=== PATIENT | male | born 1980 | race African-American/Black ===

== ENCOUNTER 2024-04-16 08:03 | Outpatient (CLI) | payer BC, SELFPAY | END 2024-04-16 08:04 | disposition home or self-care (01) | PROVIDERS: Visit Provider Family Medicine | DX: Z00.00 Encounter for general adult medical examination without abnormal findings (principal); F41.9 Anxiety disorder, unspecified; Z11.59 Encounter for screening for other viral diseases; Z76.89 Persons encountering health services in other specified circumstances | CPT/HCPCS: 80053; 80061; 86803 ==

== ENCOUNTER 2024-04-30 20:39 | Emergency (ER) | payer BC, SELFPAY ==
[2024-04-30 20:47] VITALS: BP 133/83; PULSE 76; RESP 16; TEMP 36.1; O2SAT 99; BMI 26.5
--- OUTSIDE RECORDS SUMMARY | 2024-04-30 21:45 | XMS_ITS | Referral Summary ---
Author Organization [place] Address [address] [place] [address] Care Team Providers Care Line Palletizer Name Role Phone Unavailable Primary Care Provider Unavailabl e Allergies Active Allergy Reactions Criticality Noted Date Comments Benadryl Allergy 01/28/2012 Heart murmur Medications Medication Sig Dispensed Refills Start Date End Date Status ibuprofen (ADVIL,MOTRIN) 200 MG tablet Take 200 mg by mouth every 4 hours as needed for mild pain Active Active Problems Problem Noted Date Diagnosed Date Shift work sleep disorder 03/16/2013 Hyperlipidemia LDL goal <160 12/03/2012 Anxiety Heart palpitations Immunizations Name Administration Dates Next Due TDAP (Adacel,Boostrix) 04/02/2014 Tetanus 01/28/2012 Social History Tobacco Use Types Packs/Day Years Used Date Smoking Tobacco: Some Days Cigarettes Smokeless Tobacco: Never Tobacco Cessation:Ready to Q uit: Yes; Counseling Given: No Comments:1 pack every 2 weeks Alcohol Use Standard Drinks/Week Comments No 0 (1 standard drink = 0.6 oz pur e alcohol) not frequent. Adolescent Education Answer Date Record ed Getting School Help Needed Not on file 06/14 Sex and Gender Information Value Date Recorded Sex Assigned at Not on file Gender Identity Not on file Sexual Orientation Not on file Last Filed Vital Signs Vital Sign Reading Time Taken Comments Blood Pressure 118/80 10/02/2021 11:00 PM NEONATAL SPECIALIST Pulse 73 10/02/2021 11:00 PM NEONATAL SPECIALIST Temperature 37.3 ??C (99.2 ??F) 10/02/2021 7:26 PM CS T Respiratory Rate 16 10/02/2021 11:00 PM NEONATAL SPECIALIST Oxygen Saturation 99% 10/02/2021 11:00 PM NEONATAL SPECIALIST Inhaled Oxygen Concentration - - Weight 90.7 kg (200 lb) 10/02/2021 7:26 PM NEONATAL SPECIALIST Height 185.4 cm (6' 1) 10/02/2021 7:26 PM NEONATAL SPECIALIST Body Mass Index 26.39 10/02/2021 7:26 PM NEONATAL SPECIALIST Plan of Treatment Not on file Procedures Procedure Name Priority Date/Time Associated Diagnosis Comments BASIC METABOLIC PANEL STAT 10/02/2021 7:34 PM NEONATAL SPECIALIST LIPID PROFILE Routine 03/16/2013 9:45 AM CDT Hyperlipidemia LDL goal <160 from Last 3 Months or Most Recently Relevant to Health Maintenance Results * (ABNORMAL) Basic metabolic panel (BMP) (10/02/2021 7:34 PM NEONATAL SPECIALIST) Sodium 135 133 - 144 mmol/L 10/02/2021 7:58 PM [facility] Potassium 3.9 3.4 - 5.3 mmol/L 10/02/2021 7:58 PM [facility] Chloride 102 94 - 109 mmol/L 10/02/2021 7:58 PM [facility] Carbon Dioxide (CO2) 27 20 - 32 mmol/L 10/02/2021 7:58 PM [facility] Anion Gap 6 3 - 14 mmol/L 10/02/2021 7:58 PM [facility] Urea Nitrogen 14 7 - 30 mg/dL 10/02/2021 7:58 PM [facility] Creatinine 0.86 0.66 - 1.25 mg/dL 10/02/2021 7:58 PM [facility] Calcium 8.8 8.5 - 10.1 mg/dL 10/02/2021 7:58 PM [facility] Glucose 113(H) 70 - 99 mg/dL 10/02/2021 7:58 PM [facility] GFR Estimate >90 >60 mL/min/1.7 3m2 10/02/2021 7:58 PM [facility] Comment:Effective August 242020 eGFRcr in adults is calculated using the 2020 CKD-EPI creatinine equation which includes age and gender (Cosmo ward al., NEJM, DOI: 10.1056/WASQoj9922147) Blood STRUCTURE OF RIGHT UPPER LIMB / Unknown Venipuncture / Unknown 10/02/2021 7:34 PM NEONATAL SPECIALIST 10/02/2021 7:39 PM NEONATAL SPECIALIST Denzel Andrew MD LAB - BLOOD [facility] [address] Lab (1st floor, no room number) [place] [address], [facility] [phone] * Lipid Profile (03/16/2013 9:45 AM CDT) Cholesterol 112 0 - 200 mg/dL [facility] Comment: LDL Cholesterol is the primary guide to therapy. The NCEP recommends further evaluation of: patients with cholesterol greater than 200 mg/dL if additional risk factors are present, cholesterol greater than 240 mg/dL, triglycerides greater than 150 mg/dL, or HDL less than 40 mg/dL. Triglycerides 107 0 - 150 mg/dL [facility] Comment:Fasting specimen HDL Cholesterol 44 40 - 110 mg/dL [facility] LDL Cholesterol Calculated 46 0 - 129 mg/dL [facility] Comment: LDL Cholesterol is the primary guide to therapy: LDL-cholesterol goal in high risk patients is <100 mg/dL and in very high risk patients is <70 mg/dL. VLDL-Cholesterol 21 0 - 30 mg/dL [facility] Cholesterol/HDL Ratio 2.5 0.0 - 5.0 [facility] Blood specimen (specimen) 03/16/2013 9:45 AM CDT 03/16/2013 9:50 AM CDT Blayne Nguyen MD LAB - BLOOD ORDERABL ES [facility] [address] [place] [address] from Last 3 Months or Most Recently Relevant to Health Maintenance Michael Whittington Personal/Family Self 1980 [phone] (Home) [address] [place] [address] Michael Whittington Worker's Compensation Self 1980 [phone] (Home) NONE (Work) [address] [place] [address] Michael Whittington Worker's Compensation Self 1980 [phone] (Home) NONE (Work) [address] [place] [address]
--- OUTSIDE RECORDS SUMMARY | 2024-04-30 21:45 | XMS_ITS | Encounter Summary ---
Author Organization [place] Address [address] [place] [address] Care Team Providers Care Medical Record Clerk Name Role Phone Emily [facility] July Primary Care Provide r Unavailable Encounter Details Date Type Department Care Team (Late st Contact Info) Description 09/12/2021 Documentation Only INTERFACED REPORT Unknown, Provider Social History Tobacco Use Types Packs/Day Years Used Date Smoking Tobacco: Some Days Cigarettes Smokeless Tobacco: Never Comments:1 pack every 2 week s Alcohol Use Standard Drinks/Week Comments No 0 (1 standard drink = 0.6 oz pur e alcohol) not frequent. Sex and Gender Information Value Date Recorded Sex Assigned at Not on file Gender Identity Not on file Sexual Orientation Not on file COVID-19 Exposure Response Date Recorded In the last month, have you been in contact with someone who was confirmed or suspected to have Coronavirus / COVID-19? No / Unsure 09/11/2021 6:00 PM REMEDIAL TEACHER documented as of this encounter Plan of Treatment Not on file documented as of this encounter Visit Diagnoses Not on filedocumented in this encounter Care Teams Medical Record Clerk Relationship Specialty Start Date End Date [facility] July PCP - General 09/11/21 documented as of this encounter
--- OUTSIDE RECORDS SUMMARY | 2024-04-30 21:45 | XMS_ITS | Clinical Summary ---
Author Organization [facility] [place] Address [address] [place] [address] Care Team Providers Care Field Reimbursement Manager Name Role Phone Unavailable Primary Care Provider [...] Next Due TDAP (Adacel,Boostrix) 04/02/2014 Tetanus 01/28/2012 Family History Medical History Relation Comments Arthritis Brother RA Osteoporosis Mother Allergies Other Relation Status Comments Brother Alive Mother Alive Other Social History Tobacco Use Types Packs/Day Years [...] Comments Blood Pressure 118/80 10/02/2021 11:00 PM RIPRAP WORKER Pulse 73 10/02/2021 11:00 PM RIPRAP WORKER Temperature 37.3 ??C (99.2 ??F) 10/02/2021 7:26 PM CS T Respiratory Rate 16 10/02/2021 11:00 PM RIPRAP WORKER Oxygen Saturation 99% 10/02/2021 11:00 PM RIPRAP WORKER Inhaled Oxygen Concentration - - Weight 90.7 kg (200 lb) 10/02/2021 7:26 PM RIPRAP WORKER Height 185.4 cm (6' 1) 10/02/2021 7:26 PM RIPRAP WORKER Body Mass Index 26.39 10/02/2021 7:26 PM RIPRAP WORKER Plan of Treatment Health Maintenance Due Date Last Done Comments ADVANCE CARE PLANNING 1980 ANNUAL REVIEW OF HM ORDERS 1980 Pneumococcal Vaccine: Pediatrics (0 to 5 Years) and At-Risk Patients (6 to 64 Years) (1 of 2 - PCV) 1988 HIV SCREENING 1997 HEPATITIS C SCREENING 2000 HEPATITIS B IMMUNIZATION (1 of 3 - 19+ 3-dose series) 2001 LIPID 03/16/2014 03/16/2013, 01/28/2012 YEARLY PREVENTIVE VISIT 03/14/2022 03/14/2021, 01/27 COVID-19 Vaccine ( season) 2023 06/24/2021, 06/03/2021 PHQ-2 (once per calendar year) 2023 DTAP/TDAP/TD IMMUNIZATION (2 - Td or Tdap) 04/02/2024 04/02/2014, 01/28/2012 INFLUENZA VACCINE (#1) 2024 GLUCOSE 10/02/2024 10/02/2021, 08/24, 08/24/2015, Additional history exists HPV IMMUNIZATION Aged Out No longer e ligible based on patient's age to complete this topic IPV IMMUNIZATION Aged Out No longer e ligible based on patient's age to complete this topic MENINGITIS IMMUNIZATION Aged Out No l onger eligible based on patient's age to complete this topic RSV MONOCLONAL ANTIBODY Aged Out No l onger eligible based on patient's age to complete this topic Procedures Procedure Name Priority Date/Time Associated Diagnosis Comments BASIC METABOLIC PANEL STAT 10/02/2021 7:34 PM RIPRAP WORKER LIPID PROFILE Routine 03/16/2013 9:45 AM CDT Hyperlipidemia LDL goal <160 from Last 3 Months or Most Recently Relevant to Health Maintenance Results * (ABNORMAL) Basic metabolic panel (BMP) (10/02/2021 7:34 PM RIPRAP WORKER) Pathologist [facility] Sodium 135 133 - 144 mmol/L 10/02/2021 7:58 PM [facility] Potassium 3.9 3.4 - 5.3 mmol/L 10/02/2021 7:58 PM [facility] Chloride 102 94 - 109 mmol/L 10/02/2021 7:58 PM [facility] Carbon Dioxide (CO2) 27 20 - 32 mmol/L 10/02/2021 7:58 PM [facility] Anion Gap 6 3 - 14 mmol/L 10/02/2021 7:58 PM [facility] Urea Nitrogen 14 7 - 30 mg/dL 10/02/2021 7:58 PM [facility] Creatinine 0.86 0.66 - 1.25 mg/dL 10/02/2021 7:58 PM [facility] Calcium 8.8 8.5 - 10.1 mg/dL 10/02/2021 7:58 PM [facility] Glucose 113(H) 70 - 99 mg/dL 10/02/2021 7:58 PM [facility] GFR Estimate >90 >60 mL/min/1.7 3m2 10/02/2021 7:58 PM [facility] Comment:Effective August 242020 eGFRcr in adults is calculated using the 2020 CKD-EPI creatinine equation which includes age and gender (Cosom et al., NEJM, DOI: 10.1056/CAJZxe8418751) Blood STRUCTURE OF RIGHT UPPER LIMB / Unknown Venipuncture / Unknown 10/02/2021 7:34 PM RIPRAP WORKER 10/02/2021 7:39 PM RIPRAP WORKER Denzel Andrew MD LAB - BLOOD [facility] [address] [facility] Lab (1st floor, no room number) [place] [address], [facility] [phone] * Lipid Profile (03/16/2013 9:45 AM CDT) Pathologist [facility] Cholesterol 112 0 - 200 mg/dL [facility] Comment: LDL Cholesterol is the primary guide to therapy. The NCEP recommends further evaluation of: patients with cholesterol greater than 200 mg/dL if additional risk factors are present, cholesterol greater than 240 mg/dL, triglycerides greater than 150 mg/dL, or HDL less than 40 mg/dL. Triglycerides 107 0 - 150 mg/dL [facility] Comment:Fasting specimen HDL Cholesterol 44 40 - 110 mg/dL [facility] LDL Cholesterol Calculated 46 0 - 129 mg/dL [facility] Comment: LDL Cholesterol is the primary guide to therapy: LDL-cholesterol goal in high risk patients is <100 mg/dL and in very high risk patients is <70 mg/dL. VLDL-Cholesterol 21 0 - 30 mg/dL [facility] Cholesterol/HDL Ratio 2.5 0.0 - 5.0 [facility] Blood specimen (specimen) 03/16/2013 9:45 AM CDT 03/16/2013 9:50 AM CDT Blayne Nguyen MD LAB - BLOOD ORDERABL ES [facility] [address] [place] [address] from Last 3 Months or Most Recently Relevant to Health Maintenance Michael Whittington Personal/Family Self [address] [address] Michael Whittington Worker's Compensation Self 1980 NONE (Work) [place] [address] Michael Whittington Worker's Compensation Self 1980 NONE (Work) [place] [address]
--- OUTSIDE RECORDS SUMMARY | 2024-04-30 21:45 | XMS_ITS | Encounter Summary ---
Author Organization [facility] Address [address] [place] [address] Care Team Providers Care Traffic Manager Name Role Phone Emily [facility] July Primary Care Provide r Unavailable Encounter Details Date Type Department Care Team (Late st Contact Info) Description 10/03/2021 Documentation Only INTERFACED REPORT Unknown, Provider Social [...] have Coronavirus / COVID-19? No / Unsure 10/02/2021 7:03 PM BISQUE KILN DRAWER documented as of this encounter Plan of Treatment Not on file documented as of this encounter Visit Diagnoses Not on filedocumented in this encounter Care Teams Traffic Manager Relationship Specialty Start Date End Date [facility] July PCP - General 09/11/21 documented as of this encounter
--- NOTE | 2024-04-30 22:12 | ED_ITS ---
HPI - General Adult General Chief complaint: Dizziness/Vertigo Stated complaint: dizziness Time Seen by Provider: 04/30/24 20:55 Source: patient Mode of arrival: ambulatory Limitations: no limitations History of Present Illness HPI narrative: 43-year-old male presenting today concerned about dizziness and anxiety. Patient states that the end of March he had an episode where he became acutely dizzy with the room spinning every time he moved his head a certain way. He was diagnosed with BP PVD and anxiety. He was instructed to start doing Wally maneuver and start taking propanolol. Unfortunately patient did neither. He comes in today for continued symptoms. He states that the room starts to spin usually once or twice per day. Sometimes it is very mild and lasts only few seconds. Today it was more severe where they the room was spinning for quite some time. He feels when this happens he might fall over but it never has fallen. He denies feeling nauseated or vomiting during these episodes. He st ates that he knows the episode is coming because he feels tingly all over. He feels like his head is filling with fluid. He states that then he becomes very nervous about and gets palpitations. He states that sometimes he does get a headache but is usually very mild nothing that bothers him significantly. He denies any vision or hearing changes. He does have a history of panic attacks with syncopal episodes because of these as a teenager. Past medical history is significant for anxiety, recent diagnosis of BPPV, palpitations and panic attacks. He currently is not taking any medications. Related Data Home Medications ?Medication ?Instructions ?Recorded ?Confirmed acetaminophen [Tylenol] PO 11/17/23 11/17/23 ibuprofen PO 11/17/23 11/17/23 Previous Rx's ?Medication ?Instructions ?Recorded propranolol 10 mg tablet 10 mg PO TID PRN anxiety #30 tabs 04/16/24 Allergies Allergy/AdvReac Type Severity Reaction Status Date / Time diphenhydramine Allergy Verified 04/16/24 07:45 [From Benadjessical] Review of Systems Status of ROS: Reports: 10 or more systems reviewed and unremarkable except as noted in History and below Exam Narrative: Exam Narrative: Well-nourished well-developed patient in no acute distress. Alert and oriented. Answers questions appropriately. Mood and affect are appropriate. Thoughts are goal oriented and rational. No tangential or magical thinking noted. Patient speaks in full sentences without needing to catch his breath. Normal facial symmetry. Speech is not slurred or pressured. Patient is well groomed. HEENT: Normocephalic atraumatic. Pupils are equally round reactive to light. Extraocular muscles are intact. Conjunctivae are moist without any icterus noted. Moist mucous membranes. Posterior pharynx is normal. Neck is soft without any lymphadenopathy or thyromegaly. No masses are appreciated. TMs are clear bilaterally. Cardiovascular: Heart is regular rate and rhythm S1 and S2 are present without any murmurs. Lungs: Clear to auscultation bilaterally no wheezes rhonchi or rales are appreciated. Patient takes deep breaths without any discomfort. Abdomen: Soft and nontender nondistended with normal bowel sounds. Skin: Well perfused without any obvious rashes. Strength is 5/5 of the upper and lower extremities. Reflexes are 2+ and symmetric at the knees. Romberg sign is negative. Cranial nerves 3-12 are normal. There is no nystagmus either horizontally or vertically. Gait is normal. Symptoms are not reproducible on today's exam. Const: Vital Signs, click to edit/add: Vital Signs - 24 hr 04/30/24 20:47 Temperature 97.0 F L Pulse Rate [Left P ulse Oximeter] 76 Respiratory Rate 16 Blood Pressure [Ri ght Upper Arm] 133/83 Pulse Oximetry 99 Oxygen Delivery Me thod Room Air Course Vital Signs Vital signs: Initial Vital Signs Temperature 97.0 F L 04/30/24 20:47 Temperature Source Temporal Artery Scan 04/30/24 20:47 Pulse Rate 76 04/30/24 20:47 Pulse Rhythm Regular 04/30/24 20:47 Respiratory Rate 16 04/30/24 20:47 Blood Pressure 133/83 04/30/24 20:47 Blood Pressure Mean 99 04/30/24 20:47 Blood Pressure Position Sitting 04/30/24 20:47 Pulse Oximetry 99 04/30/24 20:47 Oxygen Delivery Method Room Air 04/30/24 20:47 Vital Signs Temperature 97.0 F L 04/30/24 20:47 Pulse Rate 76 04/30/24 20:47 Respiratory Rate 16 04/30/24 20:47 Blood Pressure 133/83 04/30/24 20:47 Pulse Oximetry 99 08/08/24 20:47 Oxygen Delivery Method Room Air 04/30/24 20:47 Temperature 97.0 F L 04/30/24 20:47 Pulse Rate 76 04/30/24 20:47 Respiratory Rate 16 04/30/24 20:47 Blood Pressure 133/83 04/30/24 20:47 Pulse Oximetry 99 04/30/24 20:47 Oxygen Delivery Method Room Air 04/30/24 20:47 Medical Decision Making MDM Narrative Medical decision making narrative: [age] year male with BPPV and anxiety. We discussed that he should start taking the treatment prescribed by his doctor. He states he does not want to take a daily medication unfortunately he is allergic to diphenhydramine so meclizine will not be a good option for him. We discussed taking propanolol as needed. Also encouraged him start doing a Wally maneuver to see if this works. He already has an appointment scheduled for follow-up on the , he is encouraged to keep this appointment. I do not think that his symptoms represent anything life-threatening, there are no neurologic deficits that would suggest stroke-like symptoms. There is no significant pain that would suggest dissection. Patient had a laboratory workup including chemistries and LFTs 2 weeks ago, everything was normal, we did not repeat those labs today. Medical Records Medical records reviewed: Yes I reviewed the patient's medical records Discharge Plan Discharge Clinical Impression: BPPV (benign paroxysmal positional vertigo), Anxiety Patient Disposition: Home, Self-Care Condition: Stable Additional Instructions: Google how to do the Wally maneuver and start doing that at home. Take propanolol as needed. This prescription was sent to the pharmacy by your clinic doctor at your last visit. Follow-up with your primary care provider as scheduled. Prescriptions: No Action ibuprofen PO acetaminophen [Tylenol] PO propranolol 10 mg tablet 10 mg PO TID PRN (Reason: anxiety) Qty: 30 1RF Follow Up/Referrals: Provider,Not a Local [Primary Care Provider] - Stand Alone Forms: [employer] Info Instructions
== END 2024-04-30 22:16 | disposition home or self-care (01) ==
PROVIDERS: Emergency Provider Family Medicine
DX: H81.13 Benign paroxysmal vertigo, bilateral (principal); F41.9 Anxiety disorder, unspecified
CPT/HCPCS: 99283

== ENCOUNTER 2025-09-08 14:59 | Outpatient (CLI) | payer BC, SELFPAY | END 2025-09-08 15:00 | disposition home or self-care (01) | LOC: FRMREF 15:00 | PROVIDERS: Visit Provider Family Medicine | DX: M25.472 Effusion, left ankle (principal) | CPT/HCPCS: 84550 ==